=== PATIENT | female | born 1990 ===

== ENCOUNTER → 2017-02-25 | Outpatient (CLI) | payer OTHER ==
--- NOTE | 2017-02-25 14:15 | DIAGNOSTIC IMAGING REPORT ---
GUIDANCE NEEDLE PLACEMENT CLINICAL HISTORY: 26 years-old Female presenting with THYROID NODULE. TECHNIQUE: Real-time grayscale and limited color Doppler ultrasound imaging of the thyroid and base of the neck was performed for ultrasound-guided fine-needle aspiration. COMPARISON: Ultrasound from 02/17/2017. PROCEDURE: The risks, benefits, and alternatives to the procedure were discussed with the patient. Written informed consent was obtained. The patient was placed supine in ultrasound, and the 3 cm spongiform nodule in the right lobe of the thyroid was localized by ultrasound and selected for fine needle aspiration. The right neck was prepped and draped in the usual sterile fashion. The nodule was aspirated under ultrasound guidance with 2 passes utilizing 25-gauge needles. Specimens were reviewed by the pathologist at the time of biopsy and were deemed adequate for diagnosis. The patient tolerated the procedure well and left the department in satisfactory condition. IMPRESSION: Successful fine-needle aspiration of the right thyroid nodule as above. Electronically signed by: Carlos Brannon M.D. 02/25/2017 2:14 PM Dictated Date/Time: 02/25/2017 2:10 PM
== END | disposition home or self-care (01) ==
LOC: C.ULTR 12:59
PROVIDERS: ATTEND Family Medicine
DX: E07.9 Disorder of thyroid, unspecified (principal)

== ENCOUNTER → 2017-06-11 | Outpatient (CLI) | payer OTHER ==
--- NOTE | 2017-06-14 07:58 | MAMMOGRAPHY REPORT ---
ULTRASOUND OF RIGHT BREAST: 06/11/2017 CLINICAL HISTORY: The patient reports a palpable lump and associated tenderness in the right breast f or approximately 2 months. COMPARISON: No prior exams were available for comparison. TECHNIQUE: Real-time targeted ultrasound of the right breast was performed. FINDINGS: Real-time, high resolution targeted ultrasound was performed of the area of the palpable l ump pointed out by the patient. She cannot pinpoint the exact location of the lump but pointed to th e general region in the 9:00 breast. Targeted ultrasound was also performed of an area of pain point ed out by the patient in the right lower outer quadrant. Ultrasound of these regions demonstrates so nographically normal tissue without evidence of a mass or other suspicious sonographic abnormality. At the patient's request, ultrasound was also performed of the right inner breast, which shows no marilee picious masses or other suspicious sonographic abnormalities. IMPRESSION: ACR BI-RADS CATEGORY 1: NEGATIVE No suspicious mass or other suspicious sonographic abnormality at the site of the palpable right concepcion st lump and pain. There is no sonographic evidence of malignancy. Recommend clinical follow-up; any decision to biopsy should be based on clinical grounds. The patient was verbally notified of the results. Kecia Hodgson M.D. /:06/11/2017 14:32:43 Vice President & General Manager [employer]: Kecia Hodgson MD, [facility] letter sent: Normal 1/2 BI-RADS Code: ACR BI-RADS Category 1: Negative
== END | disposition home or self-care (01) ==
LOC: C.MAMM 13:40
PROVIDERS: ATTEND Obstetrics & Gynecology
DX: N63.0 Unspecified lump in unspecified breast (principal)

== ENCOUNTER 2024-06-11 16:28 | Inpatient (IN) ==
[2024-06-11] MEDS ORDERED: LIDOCAINE 1% LOCAL 20 ML VIAL INFIL PRN (18:16)
[2024-06-11] MEDS ORDERED: OXYTOCIN 30 UNITS/NSS 30 UNITS/500 ML BAG IV PRN (18:16)
--- NOTE | 2024-06-11 19:00 | History & Physical Report ---
Date of Service June 11, 2024 Assessment & Plan (1) Non-reassuring heart tones complicating , antepartum: Plan Patient presented for ROM but was found not to be ruptured based on RN exam with no fluid, negative nitrazine, and consistently dry bed pad here on L&D. The patient was kept here, however, for monitoring as her baby has had multiple late decels occurring with contractions. The patient and FOB bring with them a plan requesting minimal intervention, at least 3 min delayed cord clamping, no HepB vaccine, No eye ointment, and no placental pathology exam due to her preference to encapsulate and consume the placenta. The patient is also noted to have been scheduled for IOL at the gestational timeframe recommended by [facility], but patient refused that induction and rescheduled to two days from now when she will be greater than 41 weeks. She voiced to me in the room today that she was actually hoping to have not only a vaginal and an unmedicated , but was also considering a home . We discussed frankly my concerns that her decelerations represent decreased reserve and an increased chance the baby will struggle to cope with the challenges to come during labor. If there is decreased reserve / placental aging, this situation will not improve and can be expected to worsen with further days of expectant management. Madai certainly does not want a at this time, and I don't feel we need to new to that, but I cannot recommend that we continue to await the onset of natural labor as the patient's mentioned was their hope. I recommended to them that we begin an induction of labor. So long as tolerance allows, we can attempt to reach a vaginal delivery. However the primary goal should be delivery of a healthy baby by whatever route. They were offered options of induction method and I recommended beginning with lara bulb alone. They are considering whether they will accept this recommendation currently. History of Present Illness Primary Care Provider: Shellie Morse, DO 34yo at 40w6d with SIUP conceived via IUI/Clomid. has been complicated by AMA, hypothyroidism, maternal alpha-thalassemia trait, placental nodule seen @ 20wk with resulting MFM consult (placenta normalized on later scans but testing and delivery 39-40wk recommended), and low maternal vitamin D. Patient presented to L&D with concern of ROM, based on a squirt of liquid on her underwear when she was doing squats during exercise earlier today. Good FM, no painful ctx, no VB. Allergies Allergy/AdvReac Type Severity Reaction Status Date / Time azithromycin AdvReac Intermediate severe Verified 06/09/24 13:58 stomach ache Home Medications Medication Instructions Recorded Confirmed Type cholecalciferol (vitamin D3) 6,000 units PO DAILY 11/06/20 06/09/24 History choline [Choline-10] 2 tab PO DAILY 10/20/23 06/09/24 History docosahexaenoic acid [ DHA] 1 tab PO DAILY 10/20/23 06/09/24 History levothyroxine 125 mcg capsule 125 mcg PO DAILY 10/20/23 06/09/24 History levothyroxine 137 mcg capsule 137 mcg PO DAILY 01/24/24 06/09/24 History breast pump #1 ea 04/11/24 06/09/24 Rx Past Med/Surg History Problem List (Updated 06/11/24 @ 18:50 by Celina Drew MD) Non-reassuring heart tones complicating , antepartum Abnormal placenta affecting management of mother Vitamin D deficiency Encounter for anatomic survey Encounter for supervision of elderly primigravida Hypothyroidism affecting Medical History Vitamin D deficiency Chicken pox Anemia Thalassemia alpha carrier Any baby she conceives with this FOB is an obligate silent carrier of alpha- thal but NOT disease-affected. Surgical History H/O thyroidectomy Family History Mother Colorectal cancer Trigeminal neuralgia Anemia Sister Carrier of beta thalassemia Lissa's disease Grandfather (Maternal) Thyroid cancer Grandfather (Paternal) Diabetes Father Hypertension Denies family history of Ovarian cancer Breast cancer Social History Smoking Status: Never smoker Do You Dip or Chew Tobacco: No; Hx Alcohol Use: No Hx Substance Use: No Preferred Language: Irish Communication Ability: Effective Burring Machine Operator Required: No Beliefs That Will Affect Care: None marital status: marital status details: Zackary Bernard [phone] Current Living Situation: Spouse Current Living Situation Comment: Lives with spouse current occupational status: employed current occupation: Assistant Case Manager Feels Safe at Home: Yes Assistive Devices: Glasses Physical Exam Genitourinary: FHT 140 mod baron +acc +dec (early and late decels with less than half of ctx; three significant dips in her first hour+ of monitoring on L&D) Divide roughly Q10m, not correlating with signs of maternal distress. Results & Data Results & Data Vital Signs (Past 12 Hours) Vital Signs Temp Resp 06/11/24 17:20 98.8 F 18 PG Care Time/CCT Total # of Minutes Spent Total Time Spent with Patient: Total time spent is greater than 50% in coordination of care (as documented) at patient's floor/unit and/or counseling patient: Coding Level of Care Code None Diagnoses Non-reassuring heart tones complicating , antepartum O36.8390
--- NOTE | 2024-06-11 19:22 | Procedure Note ---
Procedure Note Date of Service June 11, 2024 The patient was verbally consented for placement of a lara for cervical ripening, with discussion of risks, benefits and alternatives. All her questions were answered and she agreed to proceed. Her legs were placed in lithotomy position. A lubricated, gloved hand was used to examine the cervix. Cervical exam was 2/50/-1/soft/post. A stylet was lubricated and inserted into a lara catheter to give it stiffness, and the lara catheter was then advanced along my fingers until it reached the external cervical os. The lara was then fed forward off of the stylet, which was itself never moved beyond the external os, such that the soft catheter advanced into the uterine cavity outside of the amnion until the balloon was definitely above the internal cervical os. The balloon was then inflated using sterile water to 30cc volume. Gentle traction was used to seat the balloon downward against the internal cervical os. My hand and the stylet were removed from the vagina, and the lara was secured to the patient's leg with a standard lara holding sticker. There was no significant bleeding or leakage of fluid. The heart tones remained reassuring after this process, which the patient tolerated well. Coding Additional Codes Date of Service ([facility].SURGERY)
[2024-06-11 19:58] LABS: Hematocrit (blood only) 39.9 % (37.0-47.0); Hemoglobin 12.7 g/dl (12.0-16.0); Mean Corpuscular Hemoglobin 21.9 pg (25.0-34.0); Mean Corpuscular Hgb Conc 31.8 g/dL (32.0-36.0); Mean Corpuscular Volume 68.7 fL (80.0-100.0); Platelet Count 151 K/uL (130-400); RDW Standard Deviation 38.1 fL (36.4-46.3); Red Blood Count 5.81 M/uL (4.20-5.40); White Blood Count 12.55 K/ul (4.8-10.8)
[2024-06-12] MEDS ORDERED: ceFAZolin 2000MG 2,000 MG/15 ML SYR IV SCH (06:00)
--- NOTE | 2024-06-12 07:19 | Labor Progress Brief Note ---
Date of Service June 12, 2024 Subjective Managing discomfort well, resting L lateral decub when I entered room Assessment & Plan (1) Non-reassuring heart tones complicating , antepartum: Plan: Postdatism with NRFHT yesterday and intermittently. IOL accepted. Navas balloon placed and as of this morning was able to remove easily through cervix, which is now 3-4cm. Pitocin recommended and accepted. Admission and Anticipated Discharge Date Admission Date: June 11, 2024 Physical Exam Genitourinary: FHT Cat 1 for much of the last few hours. Currently ctx are Q10-15m. baseline 140, mod baron, + accels. There was a subtle late decel with the second to last ctx, and then no decel with the most recent ctx. Navas balloon removed with gentle traction Cvx /-2/post/soft Results & Data Vital Signs (Past 12 Hours) Vital Signs Temp Pulse Resp Pulse Ox 06/12/24 07:09 78 100 06/12/24 07:04 77 100 06/12/24 06:59 78 100 06/12/24 06:54 87 100 06/12/24 06:49 79 100 06/12/24 06:44 77 100 06/12/24 06:39 68 99 06/12/24 06:34 78 98 06/12/24 06:29 76 99 06/12/24 06:24 79 100 06/12/24 06:19 78 100 06/12/24 06:14 71 100 06/12/24 06:02 80 98 06/12/24 05:57 114 H 96 06/12/24 05:52 110 H 96 06/12/24 05:47 112 H 100 06/12/24 05:42 90 97 06/12/24 05:37 100 H 97 06/12/24 05:32 98 H 98 06/12/24 05:27 107 H 98 06/12/24 05:22 104 H 97 06/12/24 05:17 91 H 98 06/12/24 05:12 82 99 06/12/24 05:07 105 H 100 06/12/24 05:02 102 H 100 06/12/24 05:00 95 H 94 06/12/24 04:57 94 H 100 06/12/24 04:45 69 100 12/16/24 04:40 72 100 06/12/24 04:35 71 100 06/12/24 04:30 76 100 06/12/24 04:25 84 100 06/12/24 04:20 67 99 06/12/24 04:15 70 100 06/12/24 04:10 67 99 06/12/24 04:05 68 98 06/12/24 04:00 69 99 06/12/24 03:55 70 99 06/12/24 03:50 78 100 06/12/24 03:45 73 98 06/12/24 03:40 68 99 06/12/24 03:35 83 100 06/12/24 03:33 16 06/12/24 03:33 98.2 F 16 06/12/24 03:30 75 99 06/12/24 03:25 75 98 06/12/24 03:20 70 98 06/12/24 03:15 80 98 06/12/24 03:10 80 99 06/12/24 03:05 76 99 06/12/24 03:00 72 98 06/12/24 02:55 70 98 06/12/24 02:50 85 99 06/12/24 02:45 78 98 06/12/24 02:40 72 99 06/12/24 02:35 73 98 06/12/24 02:30 70 99 06/12/24 02:25 75 100 06/12/24 02:20 80 100 06/12/24 02:15 80 100 06/12/24 02:10 77 100 06/12/24 02:05 81 99 06/12/24 02:00 74 99 06/12/24 01:55 77 98 06/12/24 01:50 87 100 06/12/24 01:45 85 99 06/12/24 01:40 81 98 06/12/24 01:35 85 98 06/12/24 01:30 92 H 98 06/12/24 01:25 77 97 06/12/24 01:20 78 97 06/12/24 01:15 79 97 06/12/24 01:10 74 96 06/12/24 01:05 75 97 06/12/24 01:00 80 97 06/12/24 00:55 82 97 06/12/24 00:50 81 97 06/12/24 00:45 92 H 98 06/12/24 00:40 79 97 06/12/24 00:35 79 97 06/12/24 00:30 86 97 06/12/24 00:25 78 99 06/12/24 00:20 77 98 06/12/24 00:15 76 98 06/12/24 00:10 87 98 06/11/24 23:58 87 99 06/11/24 23:53 84 98 06/11/24 23:48 89 99 06/11/24 23:43 91 H 99 06/11/24 23:38 89 99 06/11/24 23:33 91 H 99 06/11/24 23:28 89 99 06/11/24 23:23 89 100 06/11/24 22:42 16 06/11/24 22:42 98.2 F 16 Coding Level of Care Code None Diagnoses Non-reassuring heart tones complicating , antepartum O36.8390
[2024-06-12] MEDS: OXYTOCIN 30 UNITS/NSS 30 UNITS/500 ML BAG IV PRN (07:35)
[2024-06-12] MEDS: SODIUM CHLORIDE 0.9% 1,000 ML IV SCH (07:35)
--- NOTE | 2024-06-12 12:31 | Labor Progress Brief Note ---
Date of Service June 12, 2024 Subjective pt aware i am assuming care. earlier today cx exam per Dr. Barnes and pit started at 2, fetus with categ 3 tracing and pit stopped, was on for about 1hr. Patient sitting at bedside. Not feeling regular ctx. No leaking. Explained concerns of fhts on pitocin and why pitocin was stopped. Wants cx recheck. Assessment & Plan (1) Non-reassuring heart tones complicating , antepartum: (2) Post term over 40 weeks: (3) Encounter for supervision of elderly primigravida: Plan Reviewed with patient and partner what I had learned at earlier signout about fetus with lates and decision to start induction overnight. Then this am lara removed and pitocin begun and when I came to nursing station physician jonelle linn was told about decels on 2milliunits of pit and it was stopped resuscitative measures had taken place and due to that provider in attendance of c/s delivery, and recovery of fhts, that pt was awaiting counseling about next steps. Explained to couple that repetitive late or deep variable decelerations remote from delivery is the concern. I am concerned on review of tracing from when pitocin was given, within 5min decelerations started and then did become persistent. With pitocin off the decelerations are more intermittent. Her cx is not changed. She is not in labor. I do feel that since at times with her own spont contractions that decels seen that is best to delivery baby now by c/s. I would not recommend waiting as it would seem baby does not want tolerate ctx and these are ctx that are not even changing her cx. She is remote from delivery. They asked many questions that I tried to answer to the best of my ability. They will consider the recommendations and let me know when ready to discuss further or make decisions. As of now, 1242pm, the fetus is categ1. Admission and Anticipated Discharge Date Admission Date: June 11, 2024 Physical Exam Constitutional: WD/WN, vitals as above Genitourinary: Manual OB Exam: + cervical dilation (no change) OB Exam Monitor Tracing: + external FHT monitor used, + category II, + normal FHT variability and + late decelerations present isolated with exam, deceleration noted, with ctx. spont accels noted but no ctx during those times. Results & Data Vital Signs (Past 12 Hours) Vital Signs Temp Pulse Resp BP Pulse Ox 06/12/24 11:46 98 H 117/80 06/12/24 11:30 18 06/12/24 11:30 98.2 F 18 06/12/24 10:57 94 H 100 06/12/24 10:52 111 H 100 06/12/24 10:47 81 100 06/12/24 10:34 79 100 06/12/24 10:29 73 99 06/12/24 10:24 75 99 06/12/24 10:19 75 100 06/12/24 10:14 75 99 06/12/24 10:09 79 99 06/12/24 10:04 76 99 06/12/24 09:59 71 99 06/12/24 09:54 78 99 06/12/24 09:49 69 98 06/12/24 09:44 70 98 06/12/24 09:39 68 100 06/12/24 09:34 71 99 06/12/24 09:29 66 99 06/12/24 09:24 68 98 06/12/24 09:19 69 100 06/12/24 09:14 85 100 06/12/24 09:09 68 99 06/12/24 09:04 68 99 06/12/24 08:59 74 100 06/12/24 08:54 71 98 06/12/24 08:49 70 99 06/12/24 08:44 74 99 06/12/24 08:39 90 99 06/12/24 08:34 89 100 06/12/24 08:29 75 99 06/12/24 08:24 69 97 06/12/24 08:19 79 98 06/12/24 08:14 87 100 06/12/24 08:09 69 100 06/12/24 08:04 79 98 06/12/24 07:59 78 98 06/12/24 07:54 75 100 06/12/24 07:49 74 100 06/12/24 07:44 79 100 06/12/24 07:39 74 100 06/12/24 07:34 81 96 06/12/24 07:29 91 H 100 06/12/24 07:24 74 100 06/12/24 07:19 78 99 06/12/24 07:14 79 100 06/12/24 07:09 78 100 06/12/24 07:04 77 100 06/12/24 07:00 18 06/12/24 07:00 98.2 F 18 06/12/24 06:59 78 100 06/12/24 06:54 87 100 06/12/24 06:49 79 100 06/12/24 06:44 77 100 06/12/24 06:39 68 99 06/12/24 06:34 78 98 06/12/24 06:29 76 99 06/12/24 06:24 79 100 06/12/24 06:19 78 100 06/12/24 06:14 71 100 06/12/24 06:02 80 98 06/12/24 05:57 114 H 96 06/12/24 05:52 110 H 96 06/12/24 05:47 112 H 100 06/12/24 05:42 90 97 06/12/24 05:37 100 H 97 06/12/24 05:32 98 H 98 06/12/24 05:27 107 H 98 06/12/24 05:22 104 H 97 06/12/24 05:17 91 H 98 06/12/24 05:12 82 99 06/12/24 05:07 105 H 100 06/12/24 05:02 102 H 100 06/12/24 05:00 95 H 94 06/12/24 04:57 94 H 100 06/12/24 04:45 69 100 06/12/24 04:40 72 100 06/12/24 04:35 71 100 06/12/24 04:30 76 100 06/12/24 04:25 84 100 06/12/24 04:20 67 99 06/12/24 04:15 70 100 06/12/24 04:10 67 99 06/12/24 04:05 68 98 06/12/24 04:00 69 99 06/12/24 03:55 70 99 06/12/24 03:50 78 100 06/12/24 03:45 73 98 06/12/24 03:40 68 99 06/12/24 03:35 83 100 06/12/24 03:33 16 06/12/24 03:33 98.2 F 16 06/12/24 03:30 75 99 06/12/24 03:25 75 98 06/12/24 03:20 70 98 06/12/24 03:15 80 98 06/12/24 03:10 80 99 06/12/24 03:05 76 99 06/12/24 03:00 72 98 06/12/24 02:55 70 98 06/12/24 02:50 85 99 06/12/24 02:45 78 98 06/12/24 02:40 72 99 06/12/24 02:35 73 98 06/12/24 02:30 70 99 06/12/24 02:25 75 100 06/12/24 02:20 80 100 06/12/24 02:15 80 100 06/12/24 02:10 77 100 06/12/24 02:05 81 99 06/12/24 02:00 74 99 06/12/24 01:55 77 98 06/12/24 01:50 87 100 06/12/24 01:45 85 99 06/12/24 01:40 81 98 06/12/24 01:35 85 98 06/12/24 01:30 92 H 98 06/12/24 01:25 77 97 06/12/24 01:20 78 97 06/12/24 01:15 79 97 06/12/24 01:10 74 96 06/12/24 01:05 75 97 06/12/24 01:00 80 97 06/12/24 00:55 82 97 06/12/24 00:50 81 97 06/12/24 00:45 92 H 98 06/12/24 00:40 79 97 06/12/24 00:35 79 97 06/12/24 00:30 86 97 06/12/24 00:25 78 99 Coding Level of Care Code None Diagnoses Non-reassuring heart tones complicating , antepartum O36.8390 Post term over 40 weeks O48.0 Encounter for supervision of elderly primigravida O09.519
--- NOTE | 2024-06-12 13:35 | Anesthesiology Consultation ---
Date of Service June 12, 2024 Assessment & Plan (1) Encounter for pre-operative examination: Chart Review Chart Review: Acceptable Risk for Surgery and Patient NOT seen in Pre Admission Testing Consults Requested none History Height/Weight Height: 5 ft 3 in Weight: 75.977 kg Allergies Allergy/AdvReac Type Severity Reaction Status Date / Time azithromycin AdvReac Intermediate severe Verified 06/12/24 07:32 stomach ache Medications Home Medications Medication Instructions Recorded Confirmed Last Taken cholecalciferol (vitamin D3) 6,000 units PO DAILY 11/06/20 06/11/24 06/10/24 20:00 choline [Choline-10] 2 tab PO DAILY 10/20/23 06/11/24 06/10/24 20:00 docosahexaenoic acid [ DHA] 1 tab PO DAILY 10/20/23 06/11/24 06/10/24 20:00 levothyroxine 125 mcg capsule 125 mcg PO DAILY 10/20/23 06/11/24 06/08/24 07:00 levothyroxine 137 mcg capsule 137 mcg PO DAILY 01/24/24 06/11/24 06/11/24 07:00 breast pump #1 ea 04/11/24 06/09/24 Unknown Active Medications Generic Name Dose Route Start Last Admin Trade Name Freq PRN Reason Stop Dose Admin Oxytocin 30 units in 500 mls @ 2 mls/hr 06/11/24 18:43 06/12/24 07:35 Pitocin 30 Units/Nss IV 06/13/24 18:42 0.12 units/hr .Q24H PRN 2 mls/hr Labor Induction/Augmentation Administration Protocol 0.12 UNITS/HR Sodium Chloride 1,000 mls @ 50 mls/hr 06/12/24 07:45 06/12/24 09:11 Nss IV 06/13/24 07:44 50 mls/hr .Q20H ERIBERTO Infusion Past Medical History Medical History (Updated 06/12/24 @ 13:35 by Santos Cabrera MD) Encounter for pre-operative examination Pain of pelvic girdle Left Sciatic pain Right Vitamin D deficiency Chicken pox Anemia Thalassemia alpha carrier Any baby she conceives with this FOB is an obligate silent carrier of alpha- thal but NOT disease-affected. Exercise / Class Metabolic Activity II 4-5 Yardwork/Stairs/Walk up hill Past Family History Family History Mother Colorectal cancer Trigeminal neuralgia Anemia Sister Carrier of beta thalassemia Lissa's disease Grandfather (Maternal) Thyroid cancer Grandfather (Paternal) Diabetes Father Hypertension Denies family history of Ovarian cancer Breast cancer Past Surgical History Surgical History H/O thyroidectomy Past Anesthesia History No Hx of Anesthesia Complications and No Family Hx of Anesthesia Complications History of PONV No Hx of PONV and No Hx of Motion Sickness Social History Smoking Status: Never smoker Do You Dip or Chew Tobacco: No Hx Alcohol Use: No Hx Substance Use: No substance use type: does not use Physical Exam Vital Signs Last Vital Signs Temp 36.8 C 06/12/24 11:30 Pulse 98 H 06/12/24 11:46 Resp 18 06/12/24 11:30 BP 117/80 06/12/24 11:46 Pulse Ox 100 06/12/24 10:57 Testing Laboratory Results 06/11/24 19:38
--- NOTE | 2024-06-12 13:42 | Labor Progress Brief Note ---
Date of Service June 12, 2024 Subjective patient without complaints re: ctx Assessment & Plan (1) Post term over 40 weeks: (2) Non-reassuring heart tones complicating , antepartum: (3) Encounter for supervision of elderly primigravida: Plan Patient and partner now ready to proceed with c/s. They have many ?s re: bonding with baby, baby not leaving room and i did speak with nursery about their desires which they will try to accommodate as much as they can. They ask about delayed cord clamping and agree to have me clamp cord when pulsations cease. I did speak with peds and anesth about some other requests as well. Consent reviewed and signed. Risks specifically reviewed, bleeding, infection, wound healing issues, dvt and pe and . They deny further ?s and we will get OR and staff ready to proceed. FHTs currently categ 1. Admission and Anticipated Discharge Date Admission Date: June 11, 2024 Physical Exam Constitutional: WD/WN, vitals as above Genitourinary: OB Exam Monitor Tracing: + external FHT monitor used, + external uterine monitor used, + category I and + normal FHT variability Results & Data Vital Signs (Past 12 Hours) Vital Signs Temp Pulse Resp BP Pulse Ox 06/12/24 11:46 98 H 117/80 06/12/24 11:30 18 06/12/24 11:30 98.2 F 18 06/12/24 10:57 94 H 100 06/12/24 10:52 111 H 100 06/12/24 10:47 81 100 06/12/24 10:34 79 100 06/12/24 10:29 73 99 06/12/24 10:24 75 99 06/12/24 10:19 75 100 06/12/24 10:14 75 99 06/12/24 10:09 79 99 06/12/24 10:04 76 99 06/12/24 09:59 71 99 06/12/24 09:54 78 99 06/12/24 09:49 69 98 06/12/24 09:44 70 98 06/12/24 09:39 68 100 06/12/24 09:34 71 99 06/12/24 09:29 66 99 06/12/24 09:24 68 98 06/12/24 09:19 69 100 06/12/24 09:14 85 100 06/12/24 09:09 68 99 06/12/24 09:04 68 99 06/12/24 08:59 74 100 06/12/24 08:54 71 98 06/12/24 08:49 70 99 06/12/24 08:44 74 99 06/12/24 08:39 90 99 06/12/24 08:34 89 100 06/12/24 08:29 75 99 06/12/24 08:24 69 97 06/12/24 08:19 79 98 06/12/24 08:14 87 100 06/12/24 08:09 69 100 06/12/24 08:04 79 98 06/12/24 07:59 78 98 06/12/24 07:54 75 100 06/12/24 07:49 74 100 06/12/24 07:44 79 100 06/12/24 07:39 74 100 06/12/24 07:34 81 96 06/12/24 07:29 91 H 100 06/12/24 07:24 74 100 06/12/24 07:19 78 99 06/12/24 07:14 79 100 06/12/24 07:09 78 100 06/12/24 07:04 77 100 06/12/24 07:00 18 06/12/24 07:00 98.2 F 18 06/12/24 06:59 78 100 06/12/24 06:54 87 100 06/12/24 06:49 79 100 06/12/24 06:44 77 100 06/12/24 06:39 68 99 06/12/24 06:34 78 98 06/12/24 06:29 76 99 06/12/24 06:24 79 100 06/12/24 06:19 78 100 06/12/24 06:14 71 100 06/12/24 06:02 80 98 06/12/24 05:57 114 H 96 06/12/24 05:52 110 H 96 06/12/24 05:47 112 H 100 06/12/24 05:42 90 97 06/12/24 05:37 100 H 97 06/12/24 05:32 98 H 98 06/12/24 05:27 107 H 98 06/12/24 05:22 104 H 97 06/12/24 05:17 91 H 98 06/12/24 05:12 82 99 06/12/24 05:07 105 H 100 06/12/24 05:02 102 H 100 06/12/24 05:00 95 H 94 06/12/24 04:57 94 H 100 06/12/24 04:45 69 100 06/12/24 04:40 72 100 06/12/24 04:35 71 100 06/12/24 04:30 76 100 06/12/24 04:25 84 100 06/12/24 04:20 67 99 06/12/24 04:15 70 100 06/12/24 04:10 67 99 06/12/24 04:05 68 98 06/12/24 04:00 69 99 06/12/24 03:55 70 99 06/12/24 03:50 78 100 06/12/24 03:45 73 98 06/12/24 03:40 68 99 06/12/24 03:35 83 100 06/12/24 03:33 16 06/12/24 03:33 98.2 F 16 06/12/24 03:30 75 99 06/12/24 03:25 75 98 06/12/24 03:20 70 98 06/12/24 03:15 80 98 06/12/24 03:10 80 99 06/12/24 03:05 76 99 06/12/24 03:00 72 98 06/12/24 02:55 70 98 06/12/24 02:50 85 99 06/12/24 02:45 78 98 06/12/24 02:40 72 99 06/12/24 02:35 73 98 06/12/24 02:30 70 99 06/12/24 02:25 75 100 06/12/24 02:20 80 100 06/12/24 02:15 80 100 06/12/24 02:10 77 100 06/12/24 02:05 81 99 06/12/24 02:00 74 99 06/12/24 01:55 77 98 06/12/24 01:50 87 100 06/12/24 01:45 85 99 06/12/24 01:40 81 98 Coding Level of Care Code None Diagnoses Post term over 40 weeks O48.0 Non-reassuring heart tones complicating , antepartum O36.8390 Encounter for supervision of elderly primigravida O09.519
[2024-06-12] MEDS ORDERED: DEXAMETHASONE SOD INJ 4 MG/ML VIAL ONE (13:44)
[2024-06-12] MEDS ORDERED: ONDANSETRON INJ 2 MG/ML 2 ML VIAL ONE (13:44)
[2024-06-12] MEDS ORDERED: PHENYLEPHRINE 100MCG/ML 5ML SYR ONE (13:44)
[2024-06-12] MEDS ORDERED: PHENYLEPHRINE HCL 25 MG/250 ML NSS IV ONE (13:45)
[2024-06-12] MEDS ORDERED: fentaNYL citrate PF 100 MCG/2 ML VIAL ONE (13:45)
[2024-06-12] MEDS ORDERED: MoRPHine SULFATE PF 1 MG/ML 10 ML AMP/VIAL ONE (13:45)
[2024-06-12] MEDS: ACETAMINOPHEN 500 MG TAB PO SCH (14:14)
[2024-06-12] MEDS ORDERED: SODIUM CHLORIDE 0.9% 1,000 ML IV SCH ×3 (14:15→15:39)
[2024-06-12] MEDS: CITRIC ACID/SODIUM CITRATE 15 ML UDC PO SCH (14:23)
[2024-06-12] MEDS: ACETAMINOPHEN 500 MG TAB ONE (14:23)
[2024-06-12] MEDS ORDERED: NALOXONE HCL 0.4 MG/1 ML VIAL/CARP IV PRN (14:29)
[2024-06-12] MEDS ORDERED: diphenhydrAMINE 50 MG/ML VIAL IV PRN (14:29)
[2024-06-12] MEDS ORDERED: ONDANSETRON INJ 2 MG/ML 2 ML VIAL IV PRN ×2 (14:29→15:39)
[2024-06-12] MEDS ORDERED: HYDROmorphone INJ 0.5 MG/0.5 ML SYR IV PRN (14:29)
[2024-06-12] MEDS ORDERED: NALBUPHINE HCL INJ 10 MG/ML AMP IV PRN (14:29)
[2024-06-12] MEDS ORDERED: ePHEDrine sulfate 50 MG/ML AMP IV PRN (14:29)
[2024-06-12] MEDS ORDERED: PROMETHAZINE 6.25 MG/50.25 ML BAG IV PRN (14:29)
[2024-06-12] MEDS ORDERED: NALOXONE HCL 0.08 MG in SYRINGE 1.8 ML IV PRN (14:29)
[2024-06-12] MEDS ORDERED: MoRPHine SULFATE PF 1 MG/ML 10 ML AMP/VIAL INT SPINAL ONE (14:29)
[2024-06-12] MEDS ORDERED: NALOXONE HCL 1 MG in SODIUM CHLORIDE 0.9% 1,000 ML IV PRN (14:29)
[2024-06-12] MEDS ORDERED: oxyCODONE HCL IR 5 MG TAB (IMMEDIATE RELEASE) PO PRN (14:29)
[2024-06-12] MEDS ORDERED: ceFAZolin 330 MG/ML 1 GM VIAL ONE (14:30)
[2024-06-12] MEDS ORDERED: NO NARCOTICS OR SEDATIVES SCH (14:30)
[2024-06-12] MEDS ORDERED: DC INTRASPINAL MORPHINE SCH (14:30)
--- NOTE | 2024-06-12 15:19 | Operative Report ---
Post Operative Report Pre & Post Diagnosis Operation Date: 06/12/24 14:00 Pre-Op Diagnosis: 1. Post date 2. AMA 3. Non-reasurring heart tones Post Op Diagnosis: Same I identified the patient and participated in the time-out.: Yes Procedure Operation Date: 06/12/24 14:00 <No data on this case meets the specified criteria> Primary Low Transverse Section. Surgeon Liseth Simth MD, FACOG Ciso RN Quantitative Blood Loss (QBL) 130 Findings Consistent with Post-Op Diagnosis (viable male apgars 8,9 normal uterus tubes and ovaries bilaterally. placenta with evidence of advancing age. no nodule per se. ) Fluids 1100cc Specimens cord blood. Drains lara Anesthesia Type Spinal Complications none Disposition Accompanied Patient To Recovery: No Disposition: L&D Indications 34yo at 40+wks ega who did not present in labor but on evaluation in LD, notably spontaneous decels of fetus with ctx. Agreed to induction and had lara ripening balloon overnight. When pitocin started in am, persistent decelerations noted with each ctx, and pt remote from delivery. Given inability to induce due to nrfhts with ctx, recommended c/s now and pt and partner agreed. Description of Procedure The patient was taken to the operating room and identified. After adequate anesthesia was obtained, she was placed in the supine position with a leftward tilt on the operating table and prepped and draped in the usual sterile fashion. A lara catheter had already been placed. The knife was used to create a Pfannensteil skin incision that was carried down to the underlying layer of fascia. The fascia was nicked in the midline and this opening was extended laterally using Goldman scissors. Beatriz clamps were placed on the superior and inferior aspect of the fascial incision tenting it upward and the underlying rectus muscles were dissected off the overlying fascia both sharply and bluntly using Goldman scissors. The rectus muscles were bluntly in the midline. The peritoneal cavity was bluntly entered into. This opening was stretched. The bladder blade was placed. The vesicouterine peritoneum was elevated and opened up into and the bladder flap was created digitally and bladder blade was replaced. The knife was used to create a hysterotomy and this opening was stretched. The operators hand was placed through the hysterotomy and the bladder blade was removed. The head was elevated and flexed and with fundal pressure the head was delivered. The shoulders and body were rapidly delivered. The cord was clamped and cut and the infant's mouth and nares were bulb suction. The was handed off to the awaiting pediatricians. Cord blood was obtained. The placenta was manually expressed. The uterus was exteriorized and cleared of all clots and debris. Dilute IV Pitocin was begun. The uterine tone was improving. The hysterotomy was closed in a running interlocking fashion using 0 Vicryl followed by a second imbricating layer of 0 Vicryl. The hysterotomy was hemostatic. The pelvis was irrigated. The uterus was returned to the abdomen. The gutters were cleared of all clots and debris. The hysterotomy was reinspected and small midline bleeding site stitched with figure of eight suture of 2-0 vicry and then the hysterotomy was noted to be hemostatic. The fascia was then closed in running fashion using 0 Vicryl. The subcutaneous fat was copiously irrigated and reapproximated using 2-0 chromic. The skin was closed in a subcuticular fashion using 4-0 monocryl. At this point the procedure was terminated. The patient was transferred to the recovery room in stable condition. All sponge, lap and needle counts are correct x2. I attest to the content of the Intraoperative Record and any orders documented therein. Any exceptions are noted below. OB Procedure Charges 22783
[2024-06-12] MEDS: OXYTOCIN 20 UNITS/LR 1,002 ML IV SCH (15:25)
[2024-06-12] MEDS ORDERED: CALCIUM CARBONATE 500 MG CHEWABLE TAB PO PRN (15:39)
[2024-06-12] MEDS ORDERED: BENZOCAINE 20% SPRY 85 APPLN/85 GM CAN EXT PRN (15:39)
[2024-06-12] MEDS ORDERED: MAGNESIUM HYDROXIDE SUSP 30 ML UDC PO PRN (15:39)
[2024-06-12] MEDS ORDERED: DIPHTHER/TETAN/PERTUS Vaccine (Tdap, Adol/Adult) 0.5mL IM ONE (15:39)
[2024-06-12] MEDS ORDERED: SENNA 8.6 MG TAB PO PRN (15:39)
[2024-06-12] MEDS ORDERED: HYDROCORTISONE ACETATE 25 MG SUPP PR PRN (15:39)
--- NOTE | 2024-06-12 16:11 | Anesthesiology Progress Note ---
Date of Service June 12, 2024 Anesthesia Post Procedure Vital Signs Vital Signs: Temp Pulse Resp BP BP Pulse Ox 06/12/24 16:07 78 95 06/12/24 16:05 86 116/70 06/12/24 16:02 76 96 06/12/24 15:57 79 97 06/12/24 15:55 15 06/12/24 15:55 82 109/67 06/12/24 15:52 77 97 06/12/24 15:47 86 96 06/12/24 15:46 78 100/66 06/12/24 15:45 16 06/12/24 15:44 90 94 06/12/24 15:41 86 99 06/12/24 15:39 86 91 06/12/24 15:36 77 99 06/12/24 15:35 36.5 C 15 98/54 L 91 06/12/24 15:35 89 98/54 L 06/12/24 15:31 80 98 06/12/24 15:29 80 91 06/12/24 15:26 82 98 06/12/24 15:25 36.5 C 86 16 06/12/24 15:21 78 101/55 L 100 06/12/24 11:46 98 H 117/80 06/12/24 11:30 18 06/12/24 11:30 36.8 C 18 06/12/24 10:57 94 H 100 06/12/24 10:52 111 H 100 06/12/24 10:47 81 100 06/12/24 10:34 79 100 06/12/24 10:29 73 99 06/12/24 10:24 75 99 06/12/24 10:19 75 100 06/12/24 10:14 75 99 06/12/24 10:09 79 99 06/12/24 10:04 76 99 06/12/24 09:59 71 99 06/12/24 09:54 78 99 06/12/24 09:49 69 98 06/12/24 09:44 70 98 06/12/24 09:39 68 100 06/12/24 09:34 71 99 06/12/24 09:29 66 99 06/12/24 09:24 68 98 06/12/24 09:19 69 100 06/12/24 09:14 85 100 06/12/24 09:09 68 99 06/12/24 09:04 68 99 06/12/24 08:59 74 100 06/12/24 08:54 71 98 06/12/24 08:49 70 99 06/12/24 08:44 74 99 06/12/24 08:39 90 99 06/12/24 08:34 89 100 06/12/24 08:29 75 99 06/12/24 08:24 69 97 06/12/24 08:19 79 98 06/12/24 08:14 87 100 06/12/24 08:09 69 100 06/12/24 08:04 79 98 06/12/24 07:59 78 98 06/12/24 07:54 75 100 06/12/24 07:49 74 100 06/12/24 07:44 79 100 06/12/24 07:39 74 100 06/12/24 07:34 81 96 06/12/24 07:29 91 H 100 06/12/24 07:24 74 100 06/12/24 07:19 78 99 06/12/24 07:14 79 100 06/12/24 07:09 78 100 06/12/24 07:04 77 100 06/12/24 07:00 18 06/12/24 07:00 36.8 C 18 06/12/24 06:59 78 100 06/12/24 06:54 87 100 06/12/24 06:49 79 100 06/12/24 06:44 77 100 06/12/24 06:39 68 99 06/12/24 06:34 78 98 06/12/24 06:29 76 99 06/12/24 06:24 79 100 06/12/24 06:19 78 100 06/12/24 06:14 71 100 06/12/24 06:02 80 98 06/12/24 05:57 114 H 96 06/12/24 05:52 110 H 96 06/12/24 05:47 112 H 100 06/12/24 05:42 90 97 06/12/24 05:37 100 H 97 06/12/24 05:32 98 H 98 06/12/24 05:27 107 H 98 06/12/24 05:22 104 H 97 06/12/24 05:17 91 H 98 06/12/24 05:12 82 99 06/12/24 05:07 105 H 100 06/12/24 05:02 102 H 100 06/12/24 05:00 95 H 94 06/12/24 04:57 94 H 100 06/12/24 04:45 69 100 06/12/24 04:40 72 100 06/12/24 04:35 71 100 06/12/24 04:30 76 100 06/12/24 04:25 84 100 06/12/24 04:20 67 99 06/12/24 04:15 70 100 06/12/24 04:10 67 99 06/12/24 04:05 68 98 06/12/24 04:00 69 99 06/12/24 03:55 70 99 06/12/24 03:50 78 100 06/12/24 03:45 73 98 06/12/24 03:40 68 99 06/12/24 03:35 83 100 06/12/24 03:33 16 06/12/24 03:33 36.8 C 16 06/12/24 03:30 75 99 06/12/24 03:25 75 98 06/12/24 03:20 70 98 06/12/24 03:15 80 98 06/12/24 03:10 80 99 06/12/24 03:05 76 99 06/12/24 03:00 72 98 06/12/24 02:55 70 98 06/12/24 02:50 85 99 06/12/24 02:45 78 98 06/12/24 02:40 72 99 06/12/24 02:35 73 98 06/12/24 02:30 70 99 06/12/24 02:25 75 100 06/12/24 02:20 80 100 06/12/24 02:15 80 100 06/12/24 02:10 77 100 06/12/24 02:05 81 99 06/12/24 02:00 74 99 06/12/24 01:55 77 98 06/12/24 01:50 87 100 06/12/24 01:45 85 99 06/12/24 01:40 81 98 06/12/24 01:35 85 98 06/12/24 01:30 92 H 98 06/12/24 01:25 77 97 06/12/24 01:20 78 97 06/12/24 01:15 79 97 06/12/24 01:10 74 96 06/12/24 01:05 75 97 06/12/24 01:00 80 97 06/12/24 00:55 82 97 06/12/24 00:50 81 97 06/12/24 00:45 92 H 98 06/12/24 00:40 79 97 06/12/24 00:35 79 97 06/12/24 00:30 86 97 06/12/24 00:25 78 99 06/12/24 00:20 77 98 06/12/24 00:15 76 98 06/12/24 00:10 87 98 06/11/24 23:58 87 99 06/11/24 23:53 84 98 06/11/24 23:48 89 99 06/11/24 23:43 91 H 99 06/11/24 23:38 89 99 06/11/24 23:33 91 H 99 06/11/24 23:28 89 99 06/11/24 23:23 89 100 06/11/24 22:42 16 06/11/24 22:42 36.8 C 16 06/11/24 19:09 85 123/78 06/11/24 19:07 16 06/11/24 19:07 36.8 C 16 06/11/24 17:20 37.1 C 18 06/11/24 16:28 37.1 C 18 120/71 Transfer of Care Handoff Completed per policy Notes Mental Status: alert / awake / arousable and participated in evaluation Patient Amnestic to Procedure: No Nausea / Vomiting: adequately controlled Pain: adequately controlled Airway Patency, RR, SpO2: stable & adequate BP & HR: stable & adequate Hydration State: stable & adequate Neuraxial Anesthesia: was administered and sensory block is resolving Anesthetic Complications: no major complications apparent and Pt Satisfied with anesthetic care
[2024-06-12] MEDS: KETOROLAC 30 MG/ML VIAL IV SCH (16:30)
[2024-06-12] MEDS: SIMETHICONE 80 MG CHEW PO SCH (18:47)
[2024-06-12] MEDS: ACETAMINOPHEN 325 MG TAB PO SCH (21:22)
[2024-06-12] MEDS: DOCUSATE SODIUM 100 MG CAP PO SCH (21:23)
[2024-06-13] MEDS: LEVOTHYROXINE SODIUM 125 MCG TABLET PO SCH (05:43)
[2024-06-13] MEDS ORDERED: CITRIC ACID/SODIUM CITRATE 15 ML UDC PO SCH (06:00)
[2024-06-13 06:19] LABS: Hematocrit (blood only) 38.3 % (37.0-47.0); Hemoglobin 12.6 g/dl (12.0-16.0); Mean Corpuscular Hemoglobin 22.5 pg (25.0-34.0); Mean Corpuscular Hgb Conc 32.9 g/dL (32.0-36.0); Mean Corpuscular Volume 68.5 fL (80.0-100.0); Platelet Count 160 K/uL (130-400); RDW Coefficient of Variation 15.7 % (11.5-14.5); RDW Standard Deviation 37.2 fL (36.4-46.3); Red Blood Count 5.59 M/uL (4.20-5.40); White Blood Count 16.77 K/ul (4.8-10.8)
[2024-06-13 06:33] LABS: Basophils # (auto) 0.06 K/uL (0.00-0.20); Basophils % (auto) 0.4 %; Eosinophils # (auto) 0.11 K/uL (0.00-0.50); Eosinophils % (auto) 0.7 %; Immature Granulocytes # (auto) 0.07 K/uL (0.01-0.20); Immature Granulocytes % (auto) 0.4 %; Lymphocytes % (auto) 18.5 %; Microcytosis Present; Monocytes # (auto) 1.28 K/uL (0.11-0.59); Monocytes % (auto) 7.6 %; Neutrophils # (auto) 12.15 K/uL (1.40-6.50); Neutrophils % (auto) 72.4 %; Polychromasia 2+; Tear Drop Cells 1+
--- NOTE | 2024-06-13 07:42 | Obstetrical Progress Note ---
Date of Service June 13, 2024 Assessment & Plan (1) care and examination: Plan stable, doing well. eating, no void yet, lara kept longer due to her degree of numbness in legs, will get moving more today. hgb noted. Subjective Ambulation: ambulating normally Passing Gas:: Yes Diet Tolerance:: regular diet Lochia:: Small Feeding Type:: breast feeding no pain issues, pain meds work for incisional pain lara only recently removed, no void yet. Constitutional: + as per Subjective / HPI Physical Exam Constitutional WD/WN, vitals as above Respiratory normal respiratory effort, lungs clear to auscultation Cardiovascular Rate/Rhythm: regular rate and regular rhythm Gastrointestinal (Abdomen) Inspection/Auscultation: abdomen normal to inspection and + abdominal surgical incision (c/d/i ) Percussion/Palpation: abdomen soft Fundus firm 2cm down Musculoskeletal nt calves no edema Neurologic grossly normal Psychiatric A+Ox3, euthymic affect Results & Data Vital Signs (Past 12 Hours) Vital Signs Temp Pulse Resp BP Pulse Ox O2 Del Method 06/13/24 05:32 18 98 06/13/24 04:30 18 96 06/13/24 04:20 98.4 F 74 18 106/72 96 Room Air 06/13/24 03:30 18 99 06/13/24 02:30 16 98 06/13/24 01:30 18 95 06/13/24 01:00 Room Air 06/13/24 01:00 98.8 F 82 18 112/64 98 Room Air 06/13/24 00:30 18 96 06/12/24 23:35 18 99 06/12/24 22:35 20 100 06/12/24 21:35 20 98 06/12/24 21:00 20 100 06/12/24 20:00 20 100
[2024-06-13] MEDS ORDERED: oxyCODONE HCL IR 5 MG TAB (IMMEDIATE RELEASE) PO PRN (08:30)
[2024-06-13] MEDS ORDERED: diphenhydrAMINE Capsule 25 MG CAP PO PRN (08:30)
[2024-06-13] MEDS ORDERED: diphenhydrAMINE 50 MG/ML VIAL IV PRN (08:30)
[2024-06-13] MEDS ORDERED: PROMETHAZINE 12.5 MG/50.5 ML BAG IV PRN (08:30)
[2024-06-13] MEDS ORDERED: ZOLPIDEM TARTRATE 5 MG TAB PO PRN (08:30)
[2024-06-13] MEDS ORDERED: HYDROmorphone INJ 0.5 MG/0.5 ML SYR IV PRN (08:30)
[2024-06-13] MEDS ORDERED: CHOLINE PO SCH (09:00)
[2024-06-13] MEDS ORDERED: DOCOSAHEXAENOIC ACID PO SCH (09:00)
[2024-06-13] MEDS: PRENATAL VITAMIN 1 TAB PO SCH (09:06)
[2024-06-13] MEDS: CHOLECALCIFEROL 125 MCG (5,000 UNITS) TAB PO SCH (09:06)
[2024-06-13] MEDS: FERROUS SULFATE 325 MG TAB PO SCH (09:07)
[2024-06-13] MEDS ORDERED: KETOROLAC 30 MG/ML VIAL IV PRN (15:21)
[2024-06-13] MEDS: IBUPROFEN 600 MG TAB PO SCH (16:06)
[2024-06-13] MEDS: bisacodyL 5 MG TABEC PO SCH (19:41)
--- NOTE | 2024-06-14 05:53 | Obstetrical Progress Note ---
Date of Service June 14, 2024 Assessment & Plan (1) delivery delivered: Plan 2nd POD following Alek Both mom and baby doing well. Continue care as per protocol. Encouraged nursing with mother's milk. Encouraged ambulation. Can be discharged today but she wants to stay for baby's latching and breast feeding assistance. Admission and Anticipated Discharge Date Admission Date: June 11, 2024 Supervising Physician Co-Signing Physician Notes Resident Physician Supervision Note: I interviewed and examined the patient. Discussed with Dr. Butler and agree with findings and plan as documented in the note. Any exceptions or clarifications are listed here: POD#2 doing well. Would like to stay. Continue routine postoperative care. Documented By: Eliza Carrington, DO Subjective 34 years P1, 2nd POD following delivery. No active complains. Both mom and baby doing well. Mom Lying comfortable on bed. Pain: Mild, intermittent. Lochia: Moderate Diet: Regular OB diet Gas: Not aware of passing, but no abdominal distension Peeing: ok Ambulation: to Bathroom/ Corridor without any complication Answered her queries. . Review of Systems Review of Systems: No SOB, chest pain, leg pain No dizziness, headache, palpitation No Blurring of vision , fever Physical Exam 2 Physical Exam: General: Alert and oriented. No acute distress. CVS: S1 S2+ No murmurs, regular rhythm. Respiratory: CTA bilaterally. No rhonchi, wheezes, or crackles. No increased work of breathing. Abdomen: Bowel sound +. Soft, nontender Uterus: Fundus firm and palpable few cm below the umbilicus. Incision site looks healthy: Dry, No swelling, Erythema Lower extremities: No LE edema. No deep calf pain. Results & Data Vital Signs (Past 12 Hours) Vital Signs Temp Pulse Resp BP Pulse Ox O2 Del Method 06/14/24 00:30 37.5 C 91 H 18 114/75 95 Room Air 06/13/24 19:20 Room Air 06/13/24 19:20 36.7 C 86 18 104/69 97 Room Air Resident Activity Tracking Resident Involvement: Resident Care Provided Care Provided: OB Delivery
[2024-06-14 06:53] LABS: Hematocrit (blood only) 36.9 % (37.0-47.0); Hemoglobin 12.1 g/dl (12.0-16.0)
[2024-06-14] MEDS ORDERED: bisacodyL 10 MG SUPP PR PRN (15:21)
[2024-06-15] MEDS: ACETAMINOPHEN 325 MG TAB PO PRN (00:03)
--- NOTE | 2024-06-15 07:00 | Obstetrical Progress Note ---
Date of Service June 15, 2024 Assessment & Plan (1) delivery delivered: Plan erd POD following delivery for distress. Both mom and baby doing well. Can be discharged today but she wants to stay for baby's latching and breast feeding assistance. Admission and Anticipated Discharge Date Admission Date: June 11, 2024 Supervising Physician Co-Signing Physician Notes Resident Physician Supervision Note: I interviewed and examined the patient. Discussed with Dr. Butler and agree with findings and plan as documented in the note. Any exceptions or clarifications are listed here: [None] Documented By: Kristin Alba MD, FACOG Subjective 34 years P1, 2nd POD following delivery. Pain on her right upper back near shoulder. Thinks probably muscle spasm, No tingling, numbness in arm, moving arms normally. She wants to stay one more day, does not feel comfortable going home today. Baby doing well. Mom Lying comfortable on bed. Pain: Mild, intermittent. Lochia: Moderate Diet: Regular OB diet Gas:Passed Peeing: ok Ambulation: without any complication Answered her queries. Review of Systems Review of Systems: No SOB, chest pain, leg pain No dizziness, headache, palpitation No Blurring of vision , fever Physical Exam Physical Exam: General: Alert and oriented. No acute distress. CVS: S1 S2+ No murmurs, regular rhythm. Respiratory: CTA bilaterally. No rhonchi, wheezes, or crackles. No increased work of breathing. Abdomen: Bowel sound +. Soft, nontender Uterus: Fundus firm and palpable few cm below the umbilicus. Incision site looks healthy: Dry, No swelling, Erythema Lower extremities: No LE edema. No deep calf pain. Results & Data Vital Signs (Past 12 Hours) Vital Signs Temp Pulse Resp BP Pulse Ox O2 Del Method 06/14/24 23:05 37.2 C 85 16 136/89 97 Room Air 06/14/24 19:45 37.0 C 90 18 126/80 98 Room Air Resident Activity Tracking Resident Involvement: Resident Care Provided Care Provided: OB Delivery
--- NOTE | 2024-06-16 06:40 | Obstetrical Progress Note ---
Date of Service June 16, 2024 Assessment & Plan (1) delivery delivered: Plan 4th POD following delivery for distress. Both mom and baby doing well. She is ready for discharge today. Admission and Anticipated Discharge Date Admission Date: June 11, 2024 Supervising Physician Co-Signing Physician Notes Resident Physician Supervision Note: I interviewed and examined the patient. Discussed with Dr. Butler and agree with findings and plan as documented in the note. Any exceptions or clarifications are listed here: [ ] Documented By: Celina Drew MD, FACOG Subjective 34 years P1, 4th POD following delivery. Pain on her right upper back near shoulder. Thinks probably muscle spasm, No tingling, numbness in arm, moving arms normally. She feels comfortable going home today. Baby doing well. Mom Lying comfortable on bed. Pain: Mild, intermittent. Lochia: Moderate Diet: Regular OB diet Gas:Passed Peeing: ok Ambulation: without any complication Answered her queries. Review of Systems Review of Systems: No SOB, chest pain, leg pain No dizziness, headache, palpitation No Blurring of vision , fever Physical Exam Physical Exam: General: Alert and oriented. No acute distress. CVS: Looks well perfused Respiratory: No increased work of breathing. Abdomen: Bowel sound +. Soft, nontender Uterus: Fundus firm and palpable few cm below the umbilicus. Incision site looks healthy: Dry, No swelling, Erythema Lower extremities: No LE edema. No deep calf pain. Results & Data Vital Signs (Past 12 Hours) Vital Signs Temp Pulse Resp BP Pulse Ox O2 Del Method 06/15/24 22:47 37.2 C 82 16 120/72 96 Room Air 06/15/24 21:10 Room Air 06/15/24 21:10 37.3 C 100 H 18 119/79 96 Room Air Resident Activity Tracking Resident Involvement: Resident Care Provided Care Provided: OB Delivery
[2024-06-16 07:16] VITALS: TEMP 98.1
[2024-06-16 13:54] VITALS: BP 103/60; PULSE 66; RESP 18; O2SAT 99
[2024-06-16] MEDS: IBUPROFEN 600 MG TAB PO PRN (18:27)
[2024-06-16] MEDS: ACETAMINOPHEN 325 MG TAB ONE (18:28)
== END 2024-06-16 18:54 | disposition home or self-care (01) | DRG 788 ==
LOC: OPB 16:28 → 4S1 16:29 → 4E2 06-12 18:49
DX: D56.3 Thalassemia minor; O76 Abnormality in fetal heart rate and rhythm complicating labor and delivery; O48.0 Post-term pregnancy; Z88.1 Allergy status to other antibiotic agents; Z3A.41 41 weeks gestation of pregnancy; O99.02 Anemia complicating childbirth; Z37.0 Single live birth; E55.9 Vitamin D deficiency, unspecified; O99.283 Endocrine, nutritional and metabolic diseases complicating pregnancy, third trimester; E03.9 Hypothyroidism, unspecified; Z79.890 Hormone replacement therapy